=== PATIENT | male | born 1995 | race Caucasian/White ===

== ENCOUNTER 2024-11-12 11:38 | Emergency (ER) | payer OTHER ==
[~2024-11-12] VITALS: Ht 162.6 cm; Wt 70.0 kg
[2024-11-12 11:53] VITALS: O2SAT 99
[2024-11-12 12:53] LABS: HEMATOCRIT. 42.0 % (42.0-52.0); HEMOGLOBIN. 14.0 g/dL (14.0-18.0); MEAN PLATELET VOLUME 10.3 fl (7.4-10.4); PLATELET 167 x1000/uL (130-400); RED BLOOD CELL COUNT 4.70 mill/uL (4.7-6.1); RED CELL DISTRIBUTION WIDTH 14.0 % (11.6-14.6)
[2024-11-12 12:59] LABS: CLARITY URINE CLEAR (CLEAR); COLOR URINE YELLOW (YELLOW); GLUCOSE URINE NEGATIVE (NEGATIVE); KETONES URINE NEGATIVE (NEGATIVE); LEUKOCYTE ESTERASE URINE NEGATIVE (NEGATIVE); NITRITE URINE NEGATIVE (NEGATIVE); OCCULT BLOOD URINE NEGATIVE (NEGATIVE); PH URINE 7.0 (4.5-8.0); PROTEIN URINE NEGATIVE (NEGATIVE); SPECIFIC GRAVITY URINE 1.006 (1.005-1.030); UROBILINOGEN URINE 0.2 E.U./dL (0.2-1.0)
[2024-11-12 13:18] LABS: CREATININE 0.9 mg/dL (0.6-1.3); UREA NITROGEN BLOOD 8 mg/dL (9-23)
[2024-11-12 13:24] LABS: ASPARTATE AMINOTRANSFERASE 43 IU/L (<34); BILIRUBIN DIRECT 0.2 mg/dL (<=3.0)
[2024-11-12 13:25] LABS: BILIRUBIN TOTAL 0.6 mg/dL (0.1-1.0); PROTEIN TOTAL 7.1 g/dL (6.0-8.3)
[2024-11-12] MEDS ORDERED: DICYCLOMINE HCL 10MG/ML 2ML VIAL IM ONE (13:45)
[2024-11-12] MEDS: FAMOTIDINE 20MG TABLET PO ONE (13:56)
[2024-11-12] MEDS: ONDANSETRON 4MG ODT PO ONE (13:56)
[2024-11-12] MEDS: MAGNESIUM/ALUMINUM HYDROXIDE/SIMETHICONE 30ML UDC PO ONE (13:56)
[2024-11-12] MEDS: DICYCLOMINE HCL 10MG CAPSULE PO ONE (14:04)
[2024-11-12 15:08] LABS: BAND% 8.0 % (1.0-6.0); LYMPHOCYTES % MANUAL 25.0 % (20.0-50.0); MONOCYTES % MANUAL 4.0 % (2.0-8.0); NEUTROPHILS % MANUAL 63.0 % (45.0-75.0); PLATELET ESTIMATE NORMAL
[2024-11-12 18:07] VITALS: BP 106/62; PULSE 69; RESP 16; TEMP 36.7; O2SAT 99
[2024-11-12] MEDS ORDERED: IOHEXOL-300 100 ML BOTTLE ONE (23:49)
== END 2024-11-12 18:10 | disposition home or self-care (01) ==
LOC: ER 11:38
DX: R10.84 Generalized abdominal pain (principal); Z90.49 Acquired absence of other specified parts of digestive tract; Z79.899 Other long term (current) drug therapy; Z88.2 Allergy status to sulfonamides; Z88.0 Allergy status to penicillin
CPT/HCPCS: 80076; 80048; 81003; 83690; 85025; 36415; 74177; 76857; 99285; Q9967; Q0162; Z7610; J0500